=== PATIENT | male | born 1990 | race Caucasian/White ===

== ENCOUNTER 2024-01-29 12:08 | Emergency (ER) | payer SELFPAY ==
[~2024-01-29] VITALS: Ht 188 cm; Wt 90.7 kg
[2024-01-29 12:08] VITALS: BP_SYST 135; PULSE 74; RESP 18; TEMP 97.1; O2SAT 98
[2024-01-29 12:15] VITALS: BP_SYST 135; PULSE 74; RESP 18; TEMP 97.1; O2SAT 98
[2024-01-29] MEDS ORDERED: LIDOCAINE 1%, 20 ML MDV 20 ML ONE (13:05)
[2024-01-29] MEDS: AZITHROMYCIN 250 MG TABLET PO ONE (13:15)
[2024-01-29] MEDS: cefTRIAXone 250 MG VIAL IM ONE (13:15)
[2024-01-29] MEDS: LIDOCAINE 1% 10 MG/ML, 20 ML MDV INJ ONE (13:15)
== END 2024-01-29 13:16 ==
LOC: SED 12:08
DX: Z11.3 Encounter for screening for infections with a predominantly sexual mode of transmission (principal)
CPT/HCPCS: 99283; 96372; J0696; Q0144; J2001

== ENCOUNTER 2024-07-27 22:50 | Emergency (ER) | payer MEDICAID ==
[~2024-07-27] VITALS: Ht 188 cm; Wt 90.7 kg
[~2024-07-27 22:50] MED LIST: NAPR-1172 PO
[2024-07-27 23:18] VITALS: BP_SYST 142; PULSE 81; RESP 18; TEMP 97.8; O2SAT 98
== END 2024-07-28 | disposition left against medical advice (07) ==
LOC: SED 22:50
DX: R22.42 Localized swelling, mass and lump, left lower limb (principal); Z53.21 Procedure and treatment not carried out due to patient leaving prior to being seen by health care provider